=== PATIENT | female | born 1985 ===

== ENCOUNTER 2016-06-30 21:16 | Emergency (ER) | payer SELFPAY ==
[~2016-06-30 21:16] MED LIST: COLACE100 MG PO; PERCOCET1 TA1 PO
--- NOTE | 2016-06-30 22:11 | ED NURSING NOTES ---
Clinical Report - Nurses [facility] [address] [place] [address] 06/30/2016 21:17 Patient: PITER LAMBERT V TRIAGE Triage time 2148. Acuity: LEVEL 5. Chief Complaint: (has multiple broken teeth for years, worseing pain to right front tooth since yesterday . Pt worried and wants antibiotics). --21:58 Lisa Rashid R.N. 21:48 06/30/16. BP: 141/92. HR: 88. RR: 18. O2 saturation: 98%. Temp: 98.4 F. Pain level now: 01/04. --21:58 Lisa Rashid R.N. Weight: 58 kg stated. Height/Length: 64 inches Per Patient. BMI: 22. --21:54 Lisa Rashid R.N. Medications Ibuprofen 800mg 1999. --21:56 Lisa Rashid R.N. Allergies No Known Drug Allergy. --21:56 Lisa Rashid R.N. History Arrived by private vehicle. Historian: patient. Accompanied by friend. No primary care physician. PAST MEDICAL HX: Last normal menstrual period- ended 4 days ago. SOCIAL HX: Light tobacco smoker (cigarette)- less than 1/2 a pack per day. History of drug use: marijuana. No alcohol use. --21:58 Lisa Rashid R.N. PROBLEMS: Myofascial Strain. Substance Abuse. Pelvic Pain. Retained placenta. Lifestyle / Substance Problems. Gonorrhea. UTI - Urinary Tract Infection. Bipolar Disorder. Ovarian Cyst. --21:55 Lisa Rashid R.N. ADDITIONAL SURGERIES: . D and C. --21:55 Lisa Rashid R.N. Interventions ID band on patient. To treatment room. --21:58 Lisa Rashid R.N. PHYSICAL ASSESSMENT 21:48. Ambulatory to room. GENERAL / NEURO / PSYCH: Alert. Oriented X 4. Appears in pain. HEENT: Dental tenderness. Extensive dental decay (several broken teeth noted). RESPIRATORY: Respirations not labored. CVS: Capillary refill less than 2 seconds. SKIN: Skin is warm and dry. --21:59 Lisa Rashid R.N. NURSING PROGRESS NOTES 21:48. Head of bed elevated. Reassurance given. Patient identifiers checked. Call light placed in reach. Side rails up. Bed placed in lowest position. Patient ready for evaluation- chart flagged. --21:59 Lisa Rashid R.N. 22:06 06/30/2016 Penicillin V Potassium PO Capsules 500 mg given. Allergies verified and confirmed 5 rights. --22:06 Lisa Rashid R.N. 22:10 06/30/16. ( meds and dental referral sheet given to pt). --22:10 Lisa Rashid R.N. DISPOSITION / DISCHARGE Condition at departure: unchanged and stable. No learning barriers present. Discharge instructions provided and reviewed with ultimate hoops referee and the patient. Reviewed medication(s) (Pen VK, tylenol, motrin). Reviewed referrals (Dental referral sheet given). Patient and ultimate hoops referee verbalized understanding. Written instructions provided in [place]. The patient was discharged home and accompanied by ultimate hoops referee. She left the Emergency Department ambulatory and via private vehicle. Surveillance Systems Engineer driving. --22:23 Lisa Rashid R.N. 22:20 06/30/16. BP: 127/91. HR: 88. RR: 16. O2 saturation: 98% on room air. Temp: deferred. Pain level now: 01/04. --22:23 Lisa Rashid R.N. Locked/Released at 06/30/2016 22:23 by Lisa Rashid R.N.
--- NOTE | 2016-06-30 22:11 | ED ORDER SUMMARY ---
..... Patient: PITER LAMBERT V OrderSheet [facility] VisitID: [id number] [address] [place] [address] 30y, F Registration Date/Time: 06/30/2016 ORDER SHEET Weight: 58.0 kg (stated) Allergies: No Known Drug Allergy GENERAL ORDERS: MEDICATION ORDERS: Penicillin V Potassium PO 500 mg (NOW) (22:05 06/30/2016 Arsh Agarwal) (22:06 DDjuan R.NGanesh) IV FLUIDS: ORDER SHEET NOTES: [Electronically signed by Lisa Rashid R.N. (22:23 06/30/2016)] [Electronically signed by Maxi Strauss Dr. (07:25 07/01/2016)] [Electronically locked/signed by Lisa Rashid R.N. (22:23 06/30/2016)]
--- NOTE | 2016-06-30 22:11 | ED CLINICAL REPORT ---
Clinical Report - Physicians/Mid Levels [facility] [address] [place] [address] 06/30/2016 21:17 Patient: PITER LAMBERT V Arrived- By private vehicle. Historian- patient. HISTORY OF PRESENT ILLNESS Chief Complaint: DENTAL PAIN. This started several weeks and is still present and worsening. It was gradual in onset and has been waxing/waning but is not gone now. Pain described as severe. The patient has had toothache. Similar symptoms previously: Several times. Recent medical care: Not recently seen/assessed. REVIEW OF SYSTEMS No fever, chest pain, nausea or vomiting. All systems otherwise negative, except as recorded above. PAST HISTORY See nurses notes. SOCIAL HISTORY Never smoker. No alcohol use or drug use. Is a local resident. ADDITIONAL NOTES The nursing notes have been reviewed. PHYSICAL EXAM Vital Signs: 06/30/2016 21:48 BP: 141/92. HR: 88. RR: 18. O2 saturation: 98%. Temp: 98.4 F. Pain level now: 8/10. Hypertensive. Oxygen saturation normal. Appearance: Alert. No acute distress. Head: Normal external inspection. Eyes: Pupils equal, round and reactive to light. Conjunctivae and eyelids normal. ENT: Severe, extensive dental decay. No gingival induration, swelling or fluctuance. Ears normal. Nose normal. Pharynx normal. Lips normal. Gums normal. Uvula midline. No trismus. Neck: Normal inspection. Trachea midline. No adenopathy. Thyroid normal. Neck supple. CVS: Normal heart rate and rhythm. Heart sounds normal. Pulses normal. Respiratory: No respiratory distress. Breath sounds normal. Chest nontender. Abdomen: Soft and nontender. No organomegaly. Skin: Normal skin color. No rash. Normal skin turgor. Extremities: Extremities exhibit normal ROM. Extremities nontender. PROGRESS AND PROCEDURES Course of Care: The patient is a pleasant 30-year-old female presented for evaluation of dental pain. On examination patient does not have any signs of ANUG, peritonsillar abscess, retropharyngeal abscess, ordered Asim angina. Patient does have extensive dental decay however does not have any signs of more sinister type infection. Patient will be encouraged to follow up with a dentist. And about provided here in the emergency Was provided patient with prescription for and Antibiotics. No evidence of impending airway compromise. Patient is nontoxic and in no acute distress. Patient is a stable outpatient candidate. Discussed the patient workup, diagnosis, home care, follow-up, and return precautions. All questions answered. The patient expressed understanding of these instructions and was agreeable to them. Disposition: Discharged. Condition: good. CLINICAL IMPRESSION 06/30/2016 21:48 BP: 141/92. HR: 88. RR: 18. O2 saturation: 98%. Temp: 98.4 F. Pain level now: 01/04. Hypertensive. Blood pressure not normal. Oxygen saturation normal. Dental caries (extensive decay) (acute extensive). Essential hypertension (acute). acute bilateral facial pain. INSTRUCTIONS Warnings: GENERAL WARNINGS: Return or contact your physician immediately if your condition worsens or changes unexpectedly, if not improving as expected, or if other problems arise. Specifically return if pain, vomiting, bleeding, breathing difficulty or fever. Your Current Medications: CONTINUE TAKING THE FOLLOWING MEDICATIONS: Ibuprofen 800mg 2000*. Prescription Medications: Penicillin V 500 mg: take 1 tab orally every 12 hours for 10 days. Dispense twenty (20). No refills. Follow-up: Return to the emergency department as needed. Follow up with a specialist Your dentist. Reason for referral: as soon as possible, ideally in less than 3 days. Follow up with your doctor in three days. Reason for referral: recheck today's concerns. Summary of care provided to patient via paper. Screening today revealed the patient's blood pressure to be in the normal range. The patient should follow up with a primary care provider for blood pressure management. Understanding of the discharge instructions verbalized by patient. (Electronically signed by Maxi Strauss Dr. 07/01/2016 7:25)
--- NOTE | 2016-06-30 22:11 | ED ORDER SUMMARY ---
..... Patient: PITER LAMBERT V OrderSheet [facility] VisitID: [id number] [address] [place] [address] 30y, F Registration Date/Time: 06/30/2016 ORDER SHEET Weight: 58.0 kg (stated) Allergies: No Known Drug Allergy GENERAL ORDERS: MEDICATION ORDERS: Penicillin V Potassium PO 500 mg (NOW) (22:05 06/30/2016 Arsh Agarwal) (22:06 DDjuan R.NGanesh) IV FLUIDS: ORDER SHEET NOTES: [Electronically signed by Lisa Rashid R.N. (22:23 06/30/2016)] [Electronically signed by Maxi Strauss Dr. (07:25 07/01/2016)] [Electronically locked/signed by Lisa Rashid R.N. (22:23 06/30/2016)]
--- NOTE | 2016-06-30 22:11 | ED NURSING NOTES ---
Clinical Report - Nurses [facility] [address] [place] [address] 06/30/2016 21:17 Patient: PITER LAMBERT V TRIAGE Triage time 2148. Acuity: LEVEL 5. Chief Complaint: (has multiple broken teeth for years, worseing pain to right front tooth since yesterday . Pt worried and wants antibiotics). --21:58 Lisa Rashid R.N. 21:48 06/30/16. BP: 141/92. HR: 88. RR: 18. O2 saturation: 98%. Temp: 98.4 F. Pain level now: 01/04. --21:58 Lisa Rashid R.N. Weight: 58 kg stated. Height/Length: 64 inches Per Patient. BMI: 22. --21:54 Lisa Rashid R.N. Medications Ibuprofen 800mg 1999. --21:56 Lisa Rashid R.N. Allergies No Known Drug Allergy. --21:56 Lisa Rashid R.N. History Arrived by private vehicle. Historian: patient. Accompanied by friend. No primary care physician. PAST MEDICAL HX: Last normal menstrual period- ended 4 days ago. SOCIAL HX: Light tobacco smoker (cigarette)- less than 1/2 a pack per day. History of drug use: marijuana. No alcohol use. --21:58 Lisa Rashid R.N. PROBLEMS: Myofascial Strain. Substance Abuse. Pelvic Pain. Retained placenta. Lifestyle / Substance Problems. Gonorrhea. UTI - Urinary Tract Infection. Bipolar Disorder. Ovarian Cyst. --21:55 Lisa Rashid R.N. ADDITIONAL SURGERIES: . D and C. --21:55 Lisa Rashid R.N. Interventions ID band on patient. To treatment room. --21:58 Lisa Rashid R.N. PHYSICAL ASSESSMENT 21:48. Ambulatory to room. GENERAL / NEURO / PSYCH: Alert. Oriented X 4. Appears in pain. HEENT: Dental tenderness. Extensive dental decay (several broken teeth noted). RESPIRATORY: Respirations not labored. CVS: Capillary refill less than 2 seconds. SKIN: Skin is warm and dry. --21:59 Lisa Rashid R.N. NURSING PROGRESS NOTES 21:48. Head of bed elevated. Reassurance given. Patient identifiers checked. Call light placed in reach. Side rails up. Bed placed in lowest position. Patient ready for evaluation- chart flagged. --21:59 Lisa Rashid R.N. 22:06 06/30/2016 Penicillin V Potassium PO Capsules 500 mg given. Allergies verified and confirmed 5 rights. --22:06 Lisa Rashid R.N. 22:10 06/30/16. ( meds and dental referral sheet given to pt). --22:10 Lisa Rashid R.N. DISPOSITION / DISCHARGE Condition at departure: unchanged and stable. No learning barriers present. Discharge instructions provided and reviewed with information technology instructor and the patient. Reviewed medication(s) (Pen VK, tylenol, motrin). Reviewed referrals (Dental referral sheet given). Patient and information technology instructor verbalized understanding. Written instructions provided in Maltese. The patient was discharged home and accompanied by information technology instructor. She left the Emergency Department ambulatory and via private vehicle. Compliance Intern driving. --22:23 Lisa Rashid R.N. 22:20 06/30/16. BP: 127/91. HR: 88. RR: 16. O2 saturation: 98% on room air. Temp: deferred. Pain level now: 01/04. --22:23 Lisa Rashid R.N. Locked/Released at 06/30/2016 22:23 by Lisa Rashid R.N.
--- NOTE | 2016-07-01 07:26 | ED MED RECONCILIATION SUMMARY ---
Patient: PITER LAMBERT V Medication Reconciliation Report [facility] VisitID: [id number] [address] [place] [address] 30y, F Registration Date/Time: 06/30/2016 Weight: 58.0 kg Height/Length: 64 in. BMI: 22.0 ALLERGIES: No Known Drug Allergy The patient's Home Medications are listed below: CONTINUE TAKING THE FOLLOWING MEDICATIONS: Ibuprofen 800mg 1999 The source(s) of the original Home Medication information: Not obtained. The following Medications were given to the patient in the Emergency Department: Penicillin V Potassium [PO] PO 500 mg, administered: 06/30/2016 10:06:00 PM The following Medications were prescribed to the patient: Penicillin V 500 mg: take 1 tab orally every 12 hours for 10 days. Dispense twenty (20). No refills. -- Maxi Strauss Dr.
--- NOTE | 2016-07-01 07:26 | ED MAR SUMMARY ---
..... Medication Administration Record [facility] [address] [place] [address] Patient: PITER LAMBERT V Visit ID: [id number] 30y, F Weight: 58.0 kg Height/Length: 64 in BMI: 22 ALLERGIES: No Known Drug Allergy Given 22:06 06/30/2016 RachidLisa RAlverto Medication Administered: PENICILLIN V POTASSIUM [PO], Dose: 500 mg Capsules PO. Medication Ordered: Penicillin V Potassium PO 500 mg (NOW).
--- NOTE | 2016-07-01 07:26 | ED MED RECONCILIATION SUMMARY ---
Patient: PITER LAMBERT V Medication Reconciliation Report [facility] VisitID: [id number] [address] [place] [address] 30y, F Registration Date/Time: 06/30/2016 Weight: 58.0 kg Height/Length: 64 in. BMI: 22.0 ALLERGIES: No Known Drug Allergy The patient's Home Medications are listed below: CONTINUE TAKING THE FOLLOWING MEDICATIONS: Ibuprofen 800mg 1999 The source(s) of the original Home Medication information: Not obtained. The following Medications were given to the patient in the Emergency Department: Penicillin V Potassium [PO] PO 500 mg, administered: 06/30/2016 10:06:00 PM The following Medications were prescribed to the patient: Penicillin V 500 mg: take 1 tab orally every 12 hours for 10 days. Dispense twenty (20). No refills. -- Maxi Strauss Dr.
--- NOTE | 2016-07-01 07:26 | ED DISCHARGE INSTRUCTIONS ---
Patient: PITER LAMBERT V General Instructions [facility] VisitID: [id number] [place] [address] 30y, F Registration Date/Time: 06/30/2016 06/30/2016 21:48 BP: 141/92. HR: 88. RR: 18. O2 saturation: 98%. Temp: 98.4 F. Pain level now: 01/04. Hypertensive. Blood pressure not normal. Oxygen saturation normal. Dental caries (extensive decay) (acute extensive). Essential hypertension (acute). acute bilateral facial pain. INSTRUCTIONS Warnings: GENERAL WARNINGS: Return or contact your physician immediately if your condition worsens or changes unexpectedly, if not improving as expected, or if other problems arise. Specifically return if pain, vomiting, bleeding, breathing difficulty or fever. Your Current Medications: CONTINUE TAKING THE FOLLOWING MEDICATIONS: Ibuprofen 800mg 2000*. Prescription Medications: Penicillin V 500 mg: take 1 tab orally every 12 hours for 10 days. Dispense twenty (20). No refills. Follow-up: Return to the emergency department as needed. Follow up with a specialist Your dentist. Reason for referral: as soon as possible, ideally in less than 3 days. Follow up with your doctor in three days. Reason for referral: recheck today's concerns. Summary of care provided to patient via paper. Screening today revealed the patient's blood pressure to be in the normal range. The patient should follow up with a primary care provider for blood pressure management. Understanding of the discharge instructions verbalized by patient. ADDITIONAL INFORMATION Dental Cavity A dental cavity is a pit or crater in the enamel surface of the tooth. This exposes the sensitive inner layer of the tooth and causes pain. If untreated, the cavity will get bigger and may cause an infection or abscess in the root of the tooth. An infection in the tooth is a much more serious problem and may require a root canal or removal of the entire tooth. The tooth pain may be made worse by drinking hot or cold fluids. It may spread from the tooth to the ear or jaw on the same side. Home Care: Avoid hot and cold foods, and liquids since your tooth may be sensitive to temperature changes. If your tooth is chipped or cracked, or if there is a large open cavity, apply OIL OF CLOVES (available jesl-fwh-peosnxu in drug stores) directly to the tooth to reduce pain. Some pharmacies carry an ffjy-ogi-xcumfdg "toothache kit." This contains oil of cloves and a paste, which can be applied over the exposed tooth to decrease sensitivity. An ice pack on your jaw over the sore area may help to reduce pain. You may use acetaminophen (Tylenol) or ibuprofen (Motrin, Advil) to control pain, unless another pain medicine was prescribed. [ NOTE: If you have liver disease or ever had a stomach ulcer, talk with your doctor before using these medicines.] If you have signs of an infection, an antibiotic will be given. Take it as directed. Follow-Up with your dentist as directed. Although your pain may go away with the treatment given, only a dentist can fully evaluate and treat this problem to prevent further tooth damage. Get Prompt Medical Attention if any of the following occur: Redness or swelling of the face Pain worsens or spreads to the neck Fever over 100.5 F (38C) Unusual drowsiness; headache or stiff neck; weakness or fainting Pus drains from the tooth or gum Difficulty swallowing or breathing Dental Pain A crack or cavity in the tooth, which exposes the sensitive inner area of the tooth can cause tooth pain. An infection in the gum or the root of the tooth can cause pain and swelling. The pain is often made worse by drinking hot or cold fluids, or biting on hard foods. Pain may spread from the tooth to the ear or jaw on the same side. Home Care: Avoid hot and cold foods and liquids since your tooth may be sensitive to temperature changes. If your tooth is chipped or cracked, or if there is a large open cavity, apply OIL OF CLOVES (available dell-gik-ziwgujd in drug stores) directly to the tooth to reduce pain. Some pharmacies carry an awho-zwn-rjluuzd "toothache kit." This contains a paste, which can be applied over the exposed tooth to decrease sensitivity. A cold pack on your jaw over the sore area may help reduce pain. You may use acetaminophen (Tylenol) or ibuprofen (Motrin, Advil) to control pain, unless another medicine was prescribed. [ NOTE: If you have chronic liver or kidney disease or ever had a stomach ulcer or GI bleeding, talk with your doctor before using these medicines.] If you have signs of an infection, an antibiotic will be given. Take it as directed. Follow-Up as directed with a dentist. Your pain may go away with the treatment given. However, only a dentist can fully evaluate and treat the cause and prevent the pain from coming back again. TOOTHACHE IS A SIGN OF DISEASE IN YOUR TOOTH AND SHOULD BE EXAMINED AND TREATED BY A DENTIST. Get Prompt Medical Attention if any of the following occur: Your face becomes swollen or red Pain worsens or spreads to the neck Fever over 100.4 F (38.0 C) Unusual drowsiness; headache or stiff neck; weakness or fainting Pus drains from the tooth Difficulty swallowing or breathing High Blood Pressure -- To Be Confirmed [No Tx] Your blood pressure was higher today than normal. Sometimes anxiety or pain can cause a temporary rise in blood pressure that later returns to normal. If your blood pressure is high on one measurement, this does not mean that you have hypertension (a chronic illness). However, you must have your blood pressure measured again within the next few days to find out if its still high. A normal blood pressure is 120/80 or less. The first (top) number is the "systolic" pressure. The second (bottom) number is the "diastolic" pressure. Hypertension exists when either the top number is 140 or higher, OR the bottom number is 90 or higher on repeated measurements. Blood pressure in the range of 120-140 (systolic) or 80-89 (diastolic) is considered "pre-hypertension". This means your are at risk for getting hypertension. You should have regular blood pressure checks to be sure your blood pressure is not rising. Home Care: Measure your blood pressure on 3 different days and write down the results. This can be done at your doctor's office or this facility. Some pharmacies and grocery stores offer automated blood pressure machines for your use. Follow Up: If your blood pressure is "high" (over 120/80) on 2 out of 3 days, you will need to follow up with your doctor for further evaluation and treatment. DO NOT PUT THIS OFF! Untreated high blood pressure increases the risk for heart attack, also known as acute myocardial infarction, or AMI, and stroke. It is a treatable condition. Get Prompt Medical Attention if any of the following occur: Chest pain or shortness of breath Severe headache Throbbing or rushing sound in the ears Nosebleed Sudden severe abdominal pain Extreme drowsiness, confusion or fainting Dizziness or vertigo (dizziness with spinning sensation) Weakness of an arm or leg or one side of the face Difficulty with speech or vision Penicillin V Potassium Oral tablet What is this medicine? PENICILLIN V (pen i SILL in V) is a penicillin antibiotic. It is used to treat certain kinds of bacterial infections. It will not work for colds, flu, or other viral infections. How should I use this medicine? Take this medicine by mouth with a full glass of water. Follow the directions on the prescription label. Take your medicine at regular intervals. Do not take your medicine more often than directed. Take all of your medicine as directed even if you think your are better. Do not skip doses or stop your medicine early. Talk to your food checker regarding the use of this medicine in children. While this drug may be prescribed for selected conditions, precautions do apply. What side effects may I notice from receiving this medicine? Side effects that you should report to your doctor or health day care assistant as soon as possible: allergic reactions like skin rash or hives, swelling of the face, lips, or tongue breathing problems fever new symptoms of infection redness, blistering, peeling or loosening of the skin, including inside the mouth unusually weak or tired Side effects that usually do not require medical attention (report to your doctor or health day care assistant if they continue or are bothersome): diarrhea headache nausea, vomiting sore mouth or tongue stomach upset What may interact with this medicine? control pills methotrexate other antibiotics probenecid some vaccines What if I miss a dose? If you miss a dose, take it as soon as you can. If it is almost time for your next dose, take only that dose. Do not take double or extra doses. Where should I keep my medicine? Keep out of the reach of children. Store at room temperature between 15 and 30 degrees C (59 and 86 degrees F). Keep container tightly closed. Throw away any unused medicine after the expiration date. What should I tell my health care provider before I take this medicine? They need to know if you have any of these conditions: asthma bowel disease, like colitis eczema kidney disease an unusual or allergic reaction to penicillin, cephalosporins, other antibiotics or medicines, foods, tartrazine or other dyes, or preservatives or trying to get breast-feeding What should I watch for while using this medicine? Tell your doctor or health day care assistant if your symptoms do not improve. Do not treat diarrhea with over the counter products. Contact your doctor if you have diarrhea that lasts more than 2 days or if it is severe and watery. If you have diabetes, you may get a false-positive result for sugar in your urine. Check with your doctor or health day care assistant. control pills may not work properly while you are taking this medicine. Talk to your doctor about using an extra method of control. You have been given the following additional information: Dental Cavity Dental Pain Hypertension, To Be Confirmed Penicillin V Potassium Oral tablet (Electronically signed by Maxi Strauss Dr. 07/01/2016 7:25)
--- NOTE | 2016-07-01 07:26 | ED DISCHARGE INSTRUCTIONS ---
Patient: PITER LAMBERT V General Instructions Formerly [facility] VisitID: [id number] [place] [address] 30y, F Registration Date/Time: 06/30/2016 06/30/2016 21:48 BP: 141/92. HR: 88. RR: 18. O2 saturation: 98%. Temp: 98.4 F. Pain level now: 01/04. Hypertensive. Blood pressure not normal. Oxygen saturation normal. Dental caries (extensive decay) (acute extensive). Essential hypertension (acute). acute bilateral facial pain. INSTRUCTIONS Warnings: GENERAL WARNINGS: Return or contact your physician immediately if your condition worsens or changes unexpectedly, if not improving as expected, or if other problems arise. Specifically return if pain, vomiting, bleeding, breathing difficulty or fever. Your Current Medications: CONTINUE TAKING THE FOLLOWING MEDICATIONS: Ibuprofen 800mg 2000*. Prescription Medications: Penicillin V 500 mg: take 1 tab orally every 12 hours for 10 days. Dispense twenty (20). No refills. Follow-up: Return to the emergency department as needed. Follow up with a specialist Your dentist. Reason for referral: as soon as possible, ideally in less than 3 days. Follow up with your doctor in three days. Reason for referral: recheck today's concerns. Summary of care provided to patient via paper. Screening today revealed the patient's blood pressure to be in the normal range. The patient should follow up with a primary care provider for blood pressure management. Understanding of the discharge instructions verbalized by patient. ADDITIONAL INFORMATION Dental Cavity A dental cavity is a pit or crater in the enamel surface of the tooth. This exposes the sensitive inner layer of the tooth and causes pain. If untreated, the cavity will get bigger and may cause an infection or abscess in the root of the tooth. An infection in the tooth is a much more serious problem and may require a root canal or removal of the entire tooth. The tooth pain may be made worse by drinking hot or cold fluids. It may spread from the tooth to the ear or jaw on the same side. Home Care: Avoid hot and cold foods, and liquids since your tooth may be sensitive to temperature changes. If your tooth is chipped or cracked, or if there is a large open cavity, apply OIL OF CLOVES (available eznv-ukf-jusgihj in drug stores) directly to the tooth to reduce pain. Some pharmacies carry an fyvv-psv-wrjcvxq "toothache kit." This contains oil of cloves and a paste, which can be applied over the exposed tooth to decrease sensitivity. An ice pack on your jaw over the sore area may help to reduce pain. You may use acetaminophen (Tylenol) or ibuprofen (Motrin, Advil) to control pain, unless another pain medicine was prescribed. [ NOTE: If you have liver disease or ever had a stomach ulcer, talk with your doctor before using these medicines.] If you have signs of an infection, an antibiotic will be given. Take it as directed. Follow-Up with your dentist as directed. Although your pain may go away with the treatment given, only a dentist can fully evaluate and treat this problem to prevent further tooth damage. Get Prompt Medical Attention if any of the following occur: Redness or swelling of the face Pain worsens or spreads to the neck Fever over 100.5 F (38C) Unusual drowsiness; headache or stiff neck; weakness or fainting Pus drains from the tooth or gum Difficulty swallowing or breathing Dental Pain A crack or cavity in the tooth, which exposes the sensitive inner area of the tooth can cause tooth pain. An infection in the gum or the root of the tooth can cause pain and swelling. The pain is often made worse by drinking hot or cold fluids, or biting on hard foods. Pain may spread from the tooth to the ear or jaw on the same side. Home Care: Avoid hot and cold foods and liquids since your tooth may be sensitive to temperature changes. If your tooth is chipped or cracked, or if there is a large open cavity, apply OIL OF CLOVES (available vfny-xvy-pcyiccy in drug stores) directly to the tooth to reduce pain. Some pharmacies carry an iezx-lqr-azhkngi "toothache kit." This contains a paste, which can be applied over the exposed tooth to decrease sensitivity. A cold pack on your jaw over the sore area may help reduce pain. You may use acetaminophen (Tylenol) or ibuprofen (Motrin, Advil) to control pain, unless another medicine was prescribed. [ NOTE: If you have chronic liver or kidney disease or ever had a stomach ulcer or GI bleeding, talk with your doctor before using these medicines.] If you have signs of an infection, an antibiotic will be given. Take it as directed. Follow-Up as directed with a dentist. Your pain may go away with the treatment given. However, only a dentist can fully evaluate and treat the cause and prevent the pain from coming back again. TOOTHACHE IS A SIGN OF DISEASE IN YOUR TOOTH AND SHOULD BE EXAMINED AND TREATED BY A DENTIST. Get Prompt Medical Attention if any of the following occur: Your face becomes swollen or red Pain worsens or spreads to the neck Fever over 100.4 F (38.0 C) Unusual drowsiness; headache or stiff neck; weakness or fainting Pus drains from the tooth Difficulty swallowing or breathing High Blood Pressure -- To Be Confirmed [No Tx] Your blood pressure was higher today than normal. Sometimes anxiety or pain can cause a temporary rise in blood pressure that later returns to normal. If your blood pressure is high on one measurement, this does not mean that you have hypertension (a chronic illness). However, you must have your blood pressure measured again within the next few days to find out if its still high. A normal blood pressure is 120/80 or less. The first (top) number is the "systolic" pressure. The second (bottom) number is the "diastolic" pressure. Hypertension exists when either the top number is 140 or higher, OR the bottom number is 90 or higher on repeated measurements. Blood pressure in the range of 120-140 (systolic) or 80-89 (diastolic) is considered "pre-hypertension". This means your are at risk for getting hypertension. You should have regular blood pressure checks to be sure your blood pressure is not rising. Home Care: Measure your blood pressure on 3 different days and write down the results. This can be done at your doctor's office or this facility. Some pharmacies and grocery stores offer automated blood pressure machines for your use. Follow Up: If your blood pressure is "high" (over 120/80) on 2 out of 3 days, you will need to follow up with your doctor for further evaluation and treatment. DO NOT PUT THIS OFF! Untreated high blood pressure increases the risk for heart attack, also known as acute myocardial infarction, or AMI, and stroke. It is a treatable condition. Get Prompt Medical Attention if any of the following occur: Chest pain or shortness of breath Severe headache Throbbing or rushing sound in the ears Nosebleed Sudden severe abdominal pain Extreme drowsiness, confusion or fainting Dizziness or vertigo (dizziness with spinning sensation) Weakness of an arm or leg or one side of the face Difficulty with speech or vision Penicillin V Potassium Oral tablet What is this medicine? PENICILLIN V (pen i SILL in V) is a penicillin antibiotic. It is used to treat certain kinds of bacterial infections. It will not work for colds, flu, or other viral infections. How should I use this medicine? Take this medicine by mouth with a full glass of water. Follow the directions on the prescription label. Take your medicine at regular intervals. Do not take your medicine more often than directed. Take all of your medicine as directed even if you think your are better. Do not skip doses or stop your medicine early. Talk to your android developer regarding the use of this medicine in children. While this drug may be prescribed for selected conditions, precautions do apply. What side effects may I notice from receiving this medicine? Side effects that you should report to your doctor or health rn progressive care unit as soon as possible: allergic reactions like skin rash or hives, swelling of the face, lips, or tongue breathing problems fever new symptoms of infection redness, blistering, peeling or loosening of the skin, including inside the mouth unusually weak or tired Side effects that usually do not require medical attention (report to your doctor or health rn progressive care unit if they continue or are bothersome): diarrhea headache nausea, vomiting sore mouth or tongue stomach upset What may interact with this medicine? control pills methotrexate other antibiotics probenecid some vaccines What if I miss a dose? If you miss a dose, take it as soon as you can. If it is almost time for your next dose, take only that dose. Do not take double or extra doses. Where should I keep my medicine? Keep out of the reach of children. Store at room temperature between 15 and 30 degrees C (59 and 86 degrees F). Keep container tightly closed. Throw away any unused medicine after the expiration date. What should I tell my health care provider before I take this medicine? They need to know if you have any of these conditions: asthma bowel disease, like colitis eczema kidney disease an unusual or allergic reaction to penicillin, cephalosporins, other antibiotics or medicines, foods, tartrazine or other dyes, or preservatives or trying to get breast-feeding What should I watch for while using this medicine? Tell your doctor or health rn progressive care unit if your symptoms do not improve. Do not treat diarrhea with over the counter products. Contact your doctor if you have diarrhea that lasts more than 2 days or if it is severe and watery. If you have diabetes, you may get a false-positive result for sugar in your urine. Check with your doctor or health rn progressive care unit. control pills may not work properly while you are taking this medicine. Talk to your doctor about using an extra method of control. You have been given the following additional information: Dental Cavity Dental Pain Hypertension, To Be Confirmed Penicillin V Potassium Oral tablet (Electronically signed by Maxi Strauss Dr. 07/01/2016 7:25)
--- NOTE | 2016-07-01 07:26 | ED MAR SUMMARY ---
..... Medication Administration Record [facility] [address] [place] [address] Patient: PITER LAMBERT V Visit ID: [id number] 30y, F Weight: 58.0 kg Height/Length: 64 in BMI: 22 ALLERGIES: No Known Drug Allergy Given 22:06 06/30/2016 RachidLisa RAlverto Medication Administered: PENICILLIN V POTASSIUM [PO], Dose: 500 mg Capsules PO. Medication Ordered: Penicillin V Potassium PO 500 mg (NOW).
== END 2016-06-30 22:20 | disposition home or self-care (01) ==
LOC: ED SRH 21:16
DX: K02.9 Dental caries, unspecified (principal); I10 Essential (primary) hypertension; R51 Headache

== ENCOUNTER 2016-07-25 16:08 | Emergency (ER) | payer OTHER ==
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
--- NOTE | 2016-07-25 19:17 | ED MAR SUMMARY ---
..... Medication Administration Record [facility] [address] [place], [place] [id number] Patient: PITER LAMBERT V Visit ID: [id number] 30y, F Weight: 58.0 kg Height/Length: 64 in BMI: 22 ALLERGIES: No Known Drug Allergy
--- NOTE | 2016-07-25 19:17 | ED MED RECONCILIATION SUMMARY ---
Patient: PITER LAMBERT V Medication Reconciliation Report VisitID: [id number] [address] [place] [address] 30y, F Registration Date/Time: 07/25/2016 Weight: 58.0 kg Height/Length: 64 in. BMI: 22.0 ALLERGIES: No Known Drug Allergy The patient's Home Medications are listed below: NONE. The source(s) of the original Home Medication information: Not obtained. The following Medications were given to the patient in the Emergency Department: None. The following Medications were prescribed to the patient: None.
--- NOTE | 2016-07-25 19:17 | ED MAR SUMMARY ---
..... Medication Administration Record [facility] [address] [place], [place] [id number] Patient: PITER LAMBERT V Visit ID: [id number] 30y, F Weight: 58.0 kg Height/Length: 64 in BMI: 22 ALLERGIES: No Known Drug Allergy
--- NOTE | 2016-07-25 19:17 | ED MED RECONCILIATION SUMMARY ---
Patient: PITER LAMBERT V Medication Reconciliation Report [facility] VisitID: [id number] [address] [place] [address] 30y, F Registration Date/Time: 07/25/2016 Weight: 58.0 kg Height/Length: 64 in. BMI: 22.0 ALLERGIES: No Known Drug Allergy The patient's Home Medications are listed below: NONE. The source(s) of the original Home Medication information: Not obtained. The following Medications were given to the patient in the Emergency Department: None. The following Medications were prescribed to the patient: None.
== END 2016-07-25 19:03 | disposition left against medical advice (07) ==
LOC: ED SRH 16:08
DX: Z53.21 Procedure and treatment not carried out due to patient leaving prior to being seen by health care provider (principal)

== ENCOUNTER 2016-10-18 23:28 | Emergency (ER) | payer OTHER ==
--- NOTE | 2016-10-19 01:10 | ED ORDER SUMMARY ---
..... Patient: PITER LAMBERT V Order[facility] VisitID: [id number] [place] [address] 30y, F Registration Date/Time: 10/18/2016 ORDER SHEET Weight: 58.0 kg (stated) Allergies: None GENERAL ORDERS: Abd Series 2V Abd/1V Chest Urgent (00:10/19/2016 Nishant PETE) (Ack 0:28 AMcQuoid ER Tech1) (0:45 GUnger) MEDICATION ORDERS: Toradol IM 60 mg (NOW) (00:10/19/2016 Nishant PETE) (Ack 0:28 HSoule) (0:32 HSoule) IV FLUIDS: ORDER SHEET NOTES: [Electronically signed by Nathalia Davidson R.N. (10/19/2016)] [Electronically signed by Mica Delgado MD (08:56 10/27/2016)] [Electronically locked/signed by Nathalia Davidson R.N. (10/19/2016)]
--- NOTE | 2016-10-19 01:10 | ED NURSING NOTES ---
Clinical Report - Nurses [facility] [address] [place] [address] 10/18/2016 23:28 Patient: PITER LAMBERT V TRIAGE Triage time 23:39 Oct 18 2016. Acuity: LEVEL 4. Chief Complaint: ABDOMINAL PAIN and (pt reports pain periumbilical since she had a hernia repair one year ago, pt using heroin to control pain - pt waiting to get in to methadone clinic). Alert. No acute distress. SEPSIS SCREEN: Sepsis Screen. Negative (no infection suspected/documented). --23:45 Kaley Chaidez R.N. 23:38 10/18/16. BP: 125/92. HR: 81. RR: 15. O2 saturation: 100%. Temp: 97.9 F. Pain level now: 12/04. --23:45 Kaley Chaidez R.N. Weight: 58 kg stated. Height/Length: 64 inches Per Patient. BMI: 22. --23:44 Kaley Chaidez R.N. Medications None. --23:40 Kaley Chaidez R.N. Medication/allergy information source: the patient. --23:45 Kaley Chaidez R.N. Allergies None. --23:41 Kaley Chaidez R.N. History Arrived by private vehicle. Historian: patient. Accompanied by family. Onset. (one year ago). Treatment [employer]ER: None. PAST MEDICAL HX: Immunizations: up-to-date. Last normal menstrual period- September 25. SOCIAL HX: Heavy tobacco smoker (cigarette)- 1 pack per day. History of heavy drug use: heroin, methamphetamines, marijuana. Recently used drugs just prior to arrival and today. Under influence in ED. No alcohol use. No infectious disease exposure. No known contact with a sick individual. ABUSE ASSESSMENT: No report of abuse. SELF HARM ASSESSMENT: A self harm assessment was performed. The patient answered "no" to the question "Do you have thoughts of harming or killing yourself?". FALL RISK ASSESSMENT: Fall risk assessment completed. No fall risk identified. NUTRITIONAL RISK ASSESSMENT: The nutritional risk assessment revealed no deficiencies. FUNCTIONAL ASSESSMENT: Functional assessment: no impairments noted. LEARNING NEEDS ASSESSMENT: The learning needs assessment revealed no barriers. SKIN INTEGRITY ASSESSMENT: Skin integrity risk assessment completed. No skin integrity risk identified. --23:45 Kaley Chaidez R.N. PROBLEMS: Hypertension. Dental Caries. Myofascial Strain. Substance Abuse. Pelvic Pain. Retained placenta. Delivery Mar. Lifestyle / Substance Problems. Gonorrhea. . Abdominal Pain. UTI - Urinary Tract Infection. Bipolar Disorder. Ovarian Cyst. Immunizations. --23:41 Kaley Chaidez R.N. ADDITIONAL SURGERIES: . D and C. Hernia Repair. --23:41 Kaley Chaidez R.N. Interventions ID band on patient. --23:45 Kaley Chaidez R.N. PHYSICAL ASSESSMENT Ambulatory to room. Patient gowned. GENERAL / NEURO / PSYCH: Alert. Oriented X 4. Appears in no acute distress. HEENT: Mucous membranes are pink. RESPIRATORY: Respirations not labored. CVS: Capillary refill less than 2 seconds. SKIN: Skin is warm and dry. --23:46 Kaley Chaidez R.N. NURSING PROGRESS NOTES Patient identifiers checked. Call light placed in reach. Side rails up x 1. Bed placed in lowest position. Brakes of bed on. Patient ready for evaluation- chart flagged. Patient waiting for evaluation. --23:46 Kaley Chaidez R.N. 00:32 10/19/2016 Toradol (Ketorolac Tromethamine) IM 60 mg given. Given in the right deltoid. Allergies verified and confirmed 5 rights. --00:32 CelioIsmaelKeysha 00:32 10/19/16. BP: 101/63. HR: 88. RR: 20. O2 saturation: 100% on room air. Pain level now: 01/04. --00:33 Keysha Pickens Patient transported to radiology by stretcher with tech. (00:35 Oct 19 2016). --00:35 Keysha Pickens. DISPOSITION / DISCHARGE Condition at departure: improved and stable. No learning barriers present. Discharge instructions provided and reviewed with the patient. Reviewed referrals for followup (Follow up Dr. Akhtar). Patient verbalized understanding. Written instructions provided in Romansh. The patient was discharged home and accompanied by spouse. She left the Emergency Department ambulatory and via private vehicle. Spouse driving. --: Nathalia Davidson R.N. 01:16 10/19/16. BP: 107/62. HR: 83. RR: 18. O2 saturation: 97%. Temp: deferred. Pain level now: 0/10. --: Nathalia Davidson R.N. Departure time: 0116. --: Nathalia Davidson R.N. 01:00 10/19/2016 Toradol IM Response: pain is gone now. Symptoms have improved the patient feels better. --: Nathalia Davidson R.N. Locked/Released at 10/19/2016 1:23 by Nathalia Davidson R.N.
--- NOTE | 2016-10-19 01:10 | ED CLINICAL REPORT ---
Clinical Report - Physicians/Mid Levels [facility] [address], [place] [address] 10/18/2016 23:28 Patient: PITER LAMBERT V Time Seen: 23:43. Arrived- By private vehicle. Historian- patient. HISTORY OF PRESENT ILLNESS Chief Complaint: ABDOMINAL PAIN. This started about 1 year ago, flared up tonight. and is still present. At its maximum, severity described as severe. When seen in the E.D., severity described as mild. Modifying factors. Not worsened by anything. Not relieved by anything. It is described as "pain" and it is described as located in the periumbilical area. The patient has had nausea. No loss of appetite, vomiting or diarrhea. Similar symptoms previously: Recent medical care: Not recently seen/assessed. REVIEW OF SYSTEMS No constipation, black stools, hematemesis, difficulty with urination or pain with urination. No urinary frequency, bloody stools, fever, headache or sore throat. No blurred vision, chest pain, difficulty breathing, cough or joint pain. No skin rash, chills or back pain. Denies current . All systems otherwise negative, except as recorded above. PAST HISTORY Problems: Hypertension. Dental Caries. Substance Abuse. Retained placenta. Lifestyle / Substance Problems. Bipolar Disorder. Ovarian Cyst. Immunizations. LNMP - Last Normal Menstrual Period. Additional Surgeries: . D and C. Hernia Repair. Medications: None. Allergies: None. SOCIAL HISTORY Smoker- current status unknown. History of drug use: heroin, methamphetamines, marijuana. ADDITIONAL NOTES The nursing notes have been reviewed. PHYSICAL EXAM Vital Signs: 10/18/2016 23:38 BP: 125/92. HR: 81. RR: 15. O2 saturation: 100%. Temp: 97.9 F. Pain level now: 7/10. Have been reviewed. Appearance: No acute distress. (Pt is mildly drowsy. She appears mildly uncomfortable.). Eyes: Pupils equal, round and reactive to light. Eyes normal inspection. ENT: Nose normal. Neck: Normal inspection. CVS: Normal heart rate and rhythm. Heart sounds normal. Pulses normal. Respiratory: No respiratory distress. Breath sounds normal. Abdomen: Soft. Moderate tenderness in the periumbilical area. No guarding or rebound tenderness. Back: Normal inspection. No CVA tenderness. Skin: Skin warm and dry. Normal skin color. No rash. Extremities: Extremities exhibit normal ROM. No lower extremity edema. Neuro: No motor deficit. No sensory deficit. (Grossly oriented.). LABS, X-RAYS, AND EKG Pulse Oximetry: 10/18/2016 23:38 O2 saturation: 100%. (FIO2 - room air). Interpretation: normal. PROGRESS AND PROCEDURES Course of Care: Patient was given a dose of Toradol IM, and evaluated with an acute abdominal x-ray series. This was found to be unremarkable. I did feel the patient was stable for discharge home. No emergent condition causing her abdominal pain was found. Patient counseled in person regarding the patient's stable condition, test results and diagnosis. Old medical records reviewed. Disposition: Discharged. Condition: stable. CLINICAL IMPRESSION Chronic periumbilical abdominal pain of unknown cause (with acute exacerbation). INSTRUCTIONS Drink plenty of fluids. (Your x-ray series looks good. Your pain is most likely related to scar tissue from your surgery. Please follow up with your surgeon to discuss what can be done about this.). Warnings: GENERAL WARNINGS: Return or contact your physician immediately if your condition worsens or changes unexpectedly, if not improving as expected, or if other problems arise. Understanding of the discharge instructions verbalized by patient. Follow-up with: Nelson Akhtar MD, General Surgeon, , [place] [phone]; Jonathan Royal MD, General Surgeon, , [place] [phone] Follow up. Call for the next available appointment. Reason for referral: Adhesions. (Electronically signed by Mica Delgado MD 10/27/2016 8:56)
--- NOTE | 2016-10-19 01:10 | ED ORDER SUMMARY ---
..... Patient: PITER LAMBERT V OrderSheet [facility] VisitID: [id number] [place] [address] 30y, F Registration Date/Time: 10/18/2016 ORDER SHEET Weight: 58.0 kg (stated) Allergies: None GENERAL ORDERS: Abd Series 2V Abd/1V Chest Urgent (00:10/19/2016 Nishant PETE) (Ack 0:28 AMcQuoid ER Tech1) (0:45 GUnger) MEDICATION ORDERS: Toradol IM 60 mg (NOW) (00:10/19/2016 Nishant PETE) (Ack 0:28 HSoule) (0:32 HSoule) IV FLUIDS: ORDER SHEET NOTES: [Electronically signed by Nathalia Davidson R.N. (10/19/2016)] [Electronically signed by Mica Delgado MD (08:56 10/27/2016)] [Electronically locked/signed by Nathalia Davidson R.N. (10/19/2016)]
--- NOTE | 2016-10-19 01:10 | ED NURSING NOTES ---
Clinical Report - Nurses [facility] [address] [place] [address] 10/18/2016 23:28 Patient: PITER LAMBERT V TRIAGE Triage time 23:39 Oct 18 2016. Acuity: LEVEL 4. Chief Complaint: ABDOMINAL PAIN and (pt reports pain periumbilical since she had a hernia repair one year ago, pt using heroin to control pain - pt waiting to get in to methadone clinic). Alert. No acute distress. SEPSIS SCREEN: Sepsis Screen. Negative (no infection suspected/documented). --23:45 Kaley Chaidez R.N. 23:38 10/18/16. BP: 125/92. HR: 81. RR: 15. O2 saturation: 100%. Temp: 97.9 F. Pain level now: 12/04. --23:45 Kaley Chaidez R.N. Weight: 58 kg stated. Height/Length: 64 inches Per Patient. BMI: 22. --23:44 Kaley Chaidez R.N. Medications None. --23:40 Kaley Chaidez R.N. Medication/allergy information source: the patient. --23:45 Kaley Chaidez R.N. Allergies None. --23:41 Kaley Chaidez R.N. History Arrived by private vehicle. Historian: patient. Accompanied by family. Onset. (one year ago). 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 PAST MEDICAL HX: Immunizations: up-to-date. Last normal menstrual period- September 25. SOCIAL HX: Heavy tobacco smoker (cigarette)- 1 pack per day. History of heavy drug use: heroin, methamphetamines, marijuana. Recently used drugs just prior to arrival and today. Under influence in ED. No alcohol use. No infectious disease exposure. No known contact with a sick individual. ABUSE ASSESSMENT: No report of abuse. SELF HARM ASSESSMENT: A self harm assessment was performed. The patient answered "no" to the question "Do you have thoughts of harming or killing yourself?". FALL RISK ASSESSMENT: Fall risk assessment completed. No fall risk identified. NUTRITIONAL RISK ASSESSMENT: The nutritional risk assessment revealed no deficiencies. FUNCTIONAL ASSESSMENT: Functional assessment: no impairments noted. LEARNING NEEDS ASSESSMENT: The learning needs assessment revealed no barriers. SKIN INTEGRITY ASSESSMENT: Skin integrity risk assessment completed. No skin integrity risk identified. --23:45 Kaley Chaidez R.N. PROBLEMS: Hypertension. Dental Caries. Myofascial Strain. Substance Abuse. Pelvic Pain. Retained placenta. Delivery Mar. Lifestyle / Substance Problems. Gonorrhea. . Abdominal Pain. UTI - Urinary Tract Infection. Bipolar Disorder. Ovarian Cyst. Immunizations. --23:41 Kaley Chaidez R.N. ADDITIONAL SURGERIES: . D and C. Hernia Repair. --23:41 Kaley Chaidez R.N. Interventions ID band on patient. --23:45 Kaley Chaidez R.N. PHYSICAL ASSESSMENT Ambulatory to room. Patient gowned. GENERAL / NEURO / PSYCH: Alert. Oriented X 4. Appears in no acute distress. HEENT: Mucous membranes are pink. RESPIRATORY: Respirations not labored. CVS: Capillary refill less than 2 seconds. SKIN: Skin is warm and dry. --23:46 Kaley Chaidez R.N. NURSING PROGRESS NOTES Patient identifiers checked. Call light placed in reach. Side rails up x 1. Bed placed in lowest position. Brakes of bed on. Patient ready for evaluation- chart flagged. Patient waiting for evaluation. --23:46 Kaley Chaidez R.N. 00:32 10/19/2016 Toradol (Ketorolac Tromethamine) IM 60 mg given. Given in the right deltoid. Allergies verified and confirmed 5 rights. --00:32 CelioIsmaelKeysha 00:32 10/19/16. BP: 101/63. HR: 88. RR: 20. O2 saturation: 100% on room air. Pain level now: 01/04. --00:33 Keysha Pickens Patient transported to radiology by stretcher with tech. (00:35 Oct 19 2016). --00:35 Keysha Pickens. DISPOSITION / DISCHARGE Condition at departure: improved and stable. No learning barriers present. Discharge instructions provided and reviewed with the patient. Reviewed referrals for followup (Follow up Dr. Akhtar). Patient verbalized understanding. Written instructions provided in Luxembourgish. The patient was discharged home and accompanied by spouse. She left the Emergency Department ambulatory and via private vehicle. Spouse driving. --: Nathalia Davidson R.N. 01:16 10/19/16. BP: 107/62. HR: 83. RR: 18. O2 saturation: 97%. Temp: deferred. Pain level now: 0/10. --: Nathalia Davidson R.N. Departure time: 0116. --: Nathalia Davidson R.N. 01:00 10/19/2016 Toradol IM Response: pain is gone now. Symptoms have improved the patient feels better. --: Nathalia Davidson R.N. Locked/Released at 10/19/2016 1:23 by Nathalia Davidson R.N.
--- NOTE | 2016-10-19 01:10 | ED CLINICAL REPORT ---
Clinical Report - Physicians/Mid Levels [facility] [address], [place] [address] 10/18/2016 23:28 Patient: PITER LAMBERT V Time Seen: 23:43. Arrived- By private vehicle. Historian- patient. HISTORY OF PRESENT ILLNESS Chief Complaint: ABDOMINAL PAIN. This started about 1 year ago, flared up tonight. and is still present. At its maximum, severity described as severe. When seen in the E.D., severity described as mild. Modifying factors. Not worsened by anything. Not relieved by anything. It is described as "pain" and it is described as located in the periumbilical area. The patient has had nausea. No loss of appetite, vomiting or diarrhea. Similar symptoms previously: Recent medical care: Not recently seen/assessed. REVIEW OF SYSTEMS No constipation, black stools, hematemesis, difficulty with urination or pain with urination. No urinary frequency, bloody stools, fever, headache or sore throat. No blurred vision, chest pain, difficulty breathing, cough or joint pain. No skin rash, chills or back pain. Denies current . All systems otherwise negative, except as recorded above. PAST HISTORY Problems: Hypertension. Dental Caries. Substance Abuse. Retained placenta. Lifestyle / Substance Problems. Bipolar Disorder. Ovarian Cyst. Immunizations. LNMP - Last Normal Menstrual Period. Additional Surgeries: . D and C. Hernia Repair. Medications: None. Allergies: None. SOCIAL HISTORY Smoker- current status unknown. History of drug use: heroin, methamphetamines, marijuana. ADDITIONAL NOTES The nursing notes have been reviewed. PHYSICAL EXAM Vital Signs: 10/18/2016 23:38 BP: 125/92. HR: 81. RR: 15. O2 saturation: 100%. Temp: 97.9 F. Pain level now: 7/10. Have been reviewed. Appearance: No acute distress. (Pt is mildly drowsy. She appears mildly uncomfortable.). Eyes: Pupils equal, round and reactive to light. Eyes normal inspection. ENT: Nose normal. Neck: Normal inspection. CVS: Normal heart rate and rhythm. Heart sounds normal. Pulses normal. Respiratory: No respiratory distress. Breath sounds normal. Abdomen: Soft. Moderate tenderness in the periumbilical area. No guarding or rebound tenderness. Back: Normal inspection. No CVA tenderness. Skin: Skin warm and dry. Normal skin color. No rash. Extremities: Extremities exhibit normal ROM. No lower extremity edema. Neuro: No motor deficit. No sensory deficit. (Grossly oriented.). LABS, X-RAYS, AND EKG Pulse Oximetry: 10/18/2016 23:38 O2 saturation: 100%. (FIO2 - room air). Interpretation: normal. PROGRESS AND PROCEDURES Course of Care: Patient was given a dose of Toradol IM, and evaluated with an acute abdominal x-ray series. This was found to be unremarkable. I did feel the patient was stable for discharge home. No emergent condition causing her abdominal pain was found. Patient counseled in person regarding the patient's stable condition, test results and diagnosis. Old medical records reviewed. Disposition: Discharged. Condition: stable. CLINICAL IMPRESSION Chronic periumbilical abdominal pain of unknown cause (with acute exacerbation). INSTRUCTIONS Drink plenty of fluids. (Your x-ray series looks good. Your pain is most likely related to scar tissue from your surgery. Please follow up with your surgeon to discuss what can be done about this.). Warnings: GENERAL WARNINGS: Return or contact your physician immediately if your condition worsens or changes unexpectedly, if not improving as expected, or if other problems arise. Understanding of the discharge instructions verbalized by patient. Follow-up with: Nelson Akhtar MD, General Surgeon, , [place] [phone]; Jonathan Royal MD, General Surgeon, , [place] [phone] Follow up. Call for the next available appointment. Reason for referral: Adhesions. (Electronically signed by Mica Delgado MD 10/27/2016 8:56)
--- NOTE | 2016-10-19 07:33 | DIAGNOSTIC IMAGING REPORT ---
PROCEDURE: XR ABD SERIES 2V ABD/1V CHEST INDICATION: ABDOMINAL PAIN TECHNIQUE: Two views of the abdomen and a single view of the chest. COMPARISON: None. FINDINGS: Abdomen: No free intraperitoneal air. Nonspecific, nonobstructive bowel gas pattern. Moderately increased stool throughout the colon. No suspicious mass, mass effect, or calcifications. The visible osseous structures demonstrate mild lumbar dextroscoliosis. Chest: The cardiomediastinal contour is normal. No central vascular congestion. Clear lungs. No effusion or pneumothorax. Intact osseous structures. IMPRESSION: 1. Moderate fecal retention. No evidence of small bowel obstruction. 2. Normal chest.
--- NOTE | 2016-10-27 08:56 | ED MAR SUMMARY ---
..... Medication Administration Record [facility] [address] [place] [address] Patient: PITER LAMBERT V Visit ID: [id number] 30y, F Weight: 58.0 kg Height/Length: 64 in BMI: 22 ALLERGIES: None Given 00:32 10/19/2016 Keysha Pickens, Medication Administered: TORADOL [IM] (KETOROLAC TROMETHAMINE), Dose: 60 mg IM. Medication Ordered: Toradol IM 60 mg (NOW).
--- NOTE | 2016-10-27 08:56 | ED DISCHARGE INSTRUCTIONS ---
Patient: PITER LAMBERT V General Instructions [facility] VisitID: [id number] [place] [address] 30y, F Registration Date/Time: 10/18/2016 Chronic periumbilical abdominal pain of unknown cause (with acute exacerbation). INSTRUCTIONS Drink plenty of fluids. (Your x-ray series looks good. Your pain is most likely related to scar tissue from your surgery. Please follow up with your surgeon to discuss what can be done about this.). Warnings: GENERAL WARNINGS: Return or contact your physician immediately if your condition worsens or changes unexpectedly, if not improving as expected, or if other problems arise. Understanding of the discharge instructions verbalized by patient. Follow-up with: Nelson Akhtar MD, General Surgeon, , [place] [phone]; Jonathan Royal MD, General Surgeon, , [place] [phone] Follow up. Call for the next available appointment. Reason for referral: Adhesions. (Electronically signed by Mica Delagdo MD 10/27/2016 8:56)
--- NOTE | 2016-10-27 08:56 | ED MAR SUMMARY ---
..... Medication Administration Record [facility] [address] [place] [address] Patient: PITER LAMBERT V Visit ID: [id number] 30y, F Weight: 58.0 kg Height/Length: 64 in BMI: 22 ALLERGIES: None Given 00:32 10/19/2016 Keysha Pickens, Medication Administered: TORADOL [IM] (KETOROLAC TROMETHAMINE), Dose: 60 mg IM. Medication Ordered: Toradol IM 60 mg (NOW).
--- NOTE | 2016-10-27 08:56 | ED DISCHARGE INSTRUCTIONS ---
Patient: PITER LAMBERT V General Instructions [facility] VisitID: [id number] [place] [address] 30y, F Registration Date/Time: 10/18/2016 Chronic periumbilical abdominal pain of unknown cause (with acute exacerbation). INSTRUCTIONS Drink plenty of fluids. (Your x-ray series looks good. Your pain is most likely related to scar tissue from your surgery. Please follow up with your surgeon to discuss what can be done about this.). Warnings: GENERAL WARNINGS: Return or contact your physician immediately if your condition worsens or changes unexpectedly, if not improving as expected, or if other problems arise. Understanding of the discharge instructions verbalized by patient. Follow-up with: Nelson Akhtar MD, General Surgeon, , [place] [phone]; Jonathan Royal MD, General Surgeon, , [place] [phone] Follow up. Call for the next available appointment. Reason for referral: Adhesions. (Electronically signed by Mica Delgado MD 10/27/2016 8:56)
--- NOTE | 2016-10-27 08:57 | ED MED RECONCILIATION SUMMARY ---
Patient: PITER LAMBERT V Medication Reconciliation Report [facility] VisitID: [id number] [address] [place] [address] 30y, F Registration Date/Time: 10/18/2016 Weight: 58.0 kg Height/Length: 64 in. BMI: 22.0 ALLERGIES: None The patient's Home Medications are listed below: NONE. The source(s) of the original Home Medication information: patient The following Medications were given to the patient in the Emergency Department: Toradol [IM] IM 60 mg, administered: 10/19/2016 12:32:00 AM The following Medications were prescribed to the patient: None.
--- NOTE | 2016-10-27 08:57 | ED MED RECONCILIATION SUMMARY ---
Patient: PITER LAMBERT V Medication Reconciliation Report [facility] VisitID: [id number] [address] [place] [address] 30y, F Registration Date/Time: 10/18/2016 Weight: 58.0 kg Height/Length: 64 in. BMI: 22.0 ALLERGIES: None The patient's Home Medications are listed below: NONE. The source(s) of the original Home Medication information: patient The following Medications were given to the patient in the Emergency Department: Toradol [IM] IM 60 mg, administered: 10/19/2016 12:32:00 AM The following Medications were prescribed to the patient: None.
== END 2016-10-19 01:11 | disposition home or self-care (01) ==
LOC: ED SRH 23:28
DX: R10.33 Periumbilical pain (principal); G89.29 Other chronic pain; I10 Essential (primary) hypertension; F17.210 Nicotine dependence, cigarettes, uncomplicated; F19.10 Other psychoactive substance abuse, uncomplicated; F12.10 Cannabis abuse, uncomplicated